=== PATIENT | male | born 1945 | race Caucasian/White ===

== ENCOUNTER 2017-01-07 18:13 | Emergency (ER) | payer MEDICARE, BC ==
[2017-01-07 18:32] VITALS: BP 161/95
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
--- NOTE | 2017-01-08 19:19 | CR ---
EXAM DATE: 01/07/17 PATIENT'S AGE: 71 Patient: NATI MUKHERJEE Facility: [place], [place] Site . Site : 1945 Study: XRay Abdomen [id number]/26/2017 6:58:40 PM Ordering Physician: Nancy Ricardo Final Report: HISTORY: Constipation. FINDINGS: Two supine radiographs of the abdomen are compared with 18 November 2008. There is degenerative changes of the disks within the lumbar spine. There are bilateral pelvic phleboliths without change. There is gas seen within the colon. No dilated small bowel loops are seen. IMPRESSION: Gas identified within the colon. Dictated by Marta Lindquist MD @ 01/07/2017 7:04:15 PM Dictated by: Marta Lindquist MD @ 01/07/2017 19:04:19 (Electronic Signature) Report Signed by Proxy and Original Signed Document filed in the Medical Record. ROGERS
== END 2017-01-07 19:25 | disposition home or self-care (01) ==
LOC: MW.ED 18:13
DX: K59.00 Constipation, unspecified (principal); Z87.891 Personal history of nicotine dependence
CPT/HCPCS: 74000; 74000-26; 99282; 99283

== ENCOUNTER 2018-03-01 06:35 | Emergency (ER) | payer MEDICARE, BC ==
[2018-03-01] MEDS ORDERED: methylPREDNISolone Sodium Succinate 125 MG/2 ML SDV IVPUSH ONE (06:38)
[2018-03-01] MEDS ORDERED: Albuterol/Ipratropium 3.0-0.5 MG/3 ML Neb Soln NEB ONE ×2 (06:38→06:39)
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
[2018-03-01] MEDS ORDERED: LORazepam 2 MG/ML SDV IVPUSH ONE (06:43)
[2018-03-01] MEDS ORDERED: Sodium Chloride 0.9% 1,000 ML IV SCH (06:45)
[2018-03-01] MEDS ORDERED: Piperacillin/Tazobactam 2.25 GM in Sodium Chloride 0.9% 50 ML IV ONE (06:53)
[2018-03-01 07:04] VITALS: BP 144/85
[2018-03-01] MEDS: Morphine 4 MG/ML Syringe IVPUSH ONE ×2 (07:04→08:23)
[2018-03-01 07:26] LABS: CHLORIDE,CL 104 mmol/L (98-107); SODIUM,NA 140 mmol/L (136-148)
[2018-03-01] MEDS ORDERED: Morphine 4 MG/ML Syringe ONE (08:21)
--- NOTE | 2018-03-01 13:29 | CR ---
EXAM DATE: 03/01/18 PATIENT'S AGE: 72 Patient: NATI MUKHERJEE Facility: [place], [place] Site . Site : 1945 Study: XRay Chest [id number]/18/2018 8:02:00 AM Ordering Physician: Doctor Cameron Final Report: INDICATION: Chest pain. COMPARISON: Chest radiograph January 21, 2018. TECHNIQUE: Portable AP chest. FINDINGS: Cardiomegaly stable in appearance. Diffuse interstitial pulmonary fibrosis. Pneumonic infiltrates right lower lobe; relatively new when compared to January. No pneumothorax or pleural effusion. IMPRESSION: 1. Diffuse interstitial pulmonary fibrosis. 2. Pneumonic infiltrates right lung base. Dictated by Phill Josue MD @ Mar 01 2018 8:09AM (Electronic Signature) Report Signed by Proxy. [facility]
== END 2018-03-01 09:02 | disposition expired ==
LOC: MW.ED 06:35
DX: J96.01 Acute respiratory failure with hypoxia (principal)
CPT/HCPCS: 36415; 71045; 80053; 81001; 84484; 85025; 85610; 93005; 94640; 96361; 96365; 96375; 99285; J2060; J2270; J2930; J3370; J7040; J7050